=== PATIENT | female | born 1995 | race African-American/Black ===

== ENCOUNTER 2016-09-03 19:38 | Emergency (ER) | payer MEDICAID ==
[~2016-09-03] VITALS: Ht 162.6 cm; Wt 65.0 kg
[~2016-09-03 19:38] MED LIST: NAPR550T3 PO
[2016-09-03 19:39] VITALS: BP 111/76; PULSE 87; RESP 16; TEMP 98.2; O2SAT 99
== END 2016-09-04 02:48 | disposition left against medical advice (07) ==
LOC: NED 23:59
DX: R11.2 Nausea with vomiting, unspecified (principal); R19.7 Diarrhea, unspecified; Z53.21 Procedure and treatment not carried out due to patient leaving prior to being seen by health care provider
CPT/HCPCS: 99281

== ENCOUNTER 2017-04-28 16:39 | Emergency (ER) | payer SELFPAY ==
[~2017-04-28] VITALS: Ht 157.5 cm; Wt 61.5 kg
[~2017-04-28 16:39] MED LIST changes: +NAPR-803 PO; -NAPR550T3 PO
[2017-04-28 16:51] VITALS: BP 141/70; PULSE 123; RESP 20; TEMP 99.8; O2SAT 100
[2017-04-28] MEDS ORDERED: SODIUM CHLOR 0.9% 1000 ML INJ 1,000 ML IV ONE (17:21)
--- NOTE | 2017-04-28 17:27 | PD ---
HPI . Fever Chief Complaint: GI Complaint Time Seen by Provider: 17:16 Travel History International Travel<30 days: No Contact w/Intl Traveler<30days: No Traveled to known affect area: No History of Present Illness HPI This patient presents with a chief complaint of a fever for the last couple of days. It is associated with occasional nausea and vomiting. She reports 3 episodes of emesis total. She also reports nasal congestion. She has been taking NyQuil with temporary relief of symptoms. She states that she took a dose at 2 AM and then another dose at 3 PM today. She states her temperature as been running about 102. PFSH Past Medical History Hx Anticoagulant Therapy: No Cardiovascular Problems: No Chemotherapy: No Cerebrovascular Accident: No Developmental Delay: No Diabetes: No Diminished Hearing: No Respiratory: No Immunizations Current: Yes ?: Not Past Surgical History Hysterectomy: No Social History Alcohol Use: No Tobacco Use: No Substance Use: No Allergies-Medications (Allergen,Severity, Reaction): Coded Allergies: No Known Allergies (Verified Allergy, Unknown, 04/28/17) Reported Meds & Prescriptions Reported Meds & Active Scripts Active No Active Prescriptions or Reported Medications Review of Systems Except as stated in HPI: all other systems reviewed are Neg General / Constitutional: Positive: Fever, Chills HENT: Positive: Congestion Cardiovascular: No: Chest Pain or Discomfort Respiratory: No: Cough Gastrointestinal: Positive: Nausea, Vomiting, No: Diarrhea, Abdominal Pain Genitourinary: No: Urgency, Frequency, Dysuria Physical Exam Narrative GENERAL: This is a healthy-appearing 21-year-old in no distress. SKIN: warm/dry. Good turgor. HEAD: Normocephalic. Atraumatic. EYES: Pupils equal and round. No scleral icterus. No injection or drainage. ENT: No nasal bleeding or discharge. Mucous membranes pink and moist. No tenderness to percussion of her sinuses. Oropharynx has no erythema. NECK: Trachea midline. Full range of motion without pain.. No cervical lymphadenopathy. CARDIOVASCULAR: Tachycardic with a regular rhythm. RESPIRATORY: No accessory muscle use. Clear to auscultation. Breath sounds equal bilaterally. GASTROINTESTINAL: Abdomen soft. Nontender. Bowel sounds present. Nondistended. MUSCULOSKELETAL: No obvious deformities. NEUROLOGICAL: Awake and alert. No obvious cranial nerve deficits. Motor grossly within normal limits. Normal speech. PSYCHIATRIC: Appropriate mood and affect; insight and judgment normal. Data Data Last Documented VS Vital Signs Date Time Temp Pulse Resp B/P (MAP) Pulse Ox O2 Delivery O2 Flow Rate FiO2 04/28/17 18:16 17 04/28/17 18:14 98 Room Air 04/28/17 16:51 99.8 123 Orders Orders Iv Access Insert/Monitor (04/28/17 17:21) Ecg Monitoring (04/28/17 17:21) Oximetry (04/28/17 17:21) Ondansetron Inj (Zofran Inj) (04/28/17 17:30) Sodium Chlor 0.9% 1000 Ml Inj (Ns 1000 M (04/28/17 17:21) Sodium Chloride 0.9% Flush (Ns Flush) (04/28/17 17:30) Influenzae A/B Antigen (04/28/17 17:21) Ibuprofen (Motrin) (04/28/17 17:30) MDM Medical Decision Making Medical Screen Exam Complete: Yes Emergency Medical Condition: Yes Differential Diagnosis Differential diagnosis of fever includes but is not limited to viral illness, strep throat, otitis media, pneumonia, sepsis, UTI Narrative Course This patient presents with a 2 day history of fever associated with nasal congestion and occasional nausea and vomiting. I will treat her here with a liter of fluid, IV Zofran and oral ibuprofen. Flu test is pending. Flu screen is negative. This patient continues to look well. I will discharge her following her fluid bolus. Diagnosis Primary Impression: Viral syndrome Patient Instructions: General Instructions, Viral Syndrome (DC) Med/Other Pt SpecificInfo: Prescription(s) given Scripts Ondansetron (Zofran) 4 Mg Tab 4 MG PO Q6HR Y for NAUSEA OR VOMITING, #10 TAB 0 Refills Prov: Irene Lopez MD 04/28/17 Disposition: 01 DISCHARGE HOME Condition: Stable Irene Lopez MD Apr 28, 2017 17:27
[2017-04-28] MEDS ORDERED: SODIUM CHLORIDE 0.9% FLUSH 10 ML FLUSH IVF PRN (17:30)
[2017-04-28] MEDS ORDERED: ONDANSETRON HCL 4 MG/2 ML VIAL IV PUSH ONE (17:30)
[2017-04-28] MEDS ORDERED: IBUPROFEN 800 MG TAB PO ONE (17:30)
[2017-04-28 18:14] VITALS: RESP 17; O2SAT 98
[2017-04-28] MEDS ORDERED: ZOFR4TAB PO (18:43)
== END 2017-04-28 19:42 | disposition home or self-care (01) ==
LOC: NEPD 16:39
DX: B34.9 Viral infection, unspecified (principal); R11.2 Nausea with vomiting, unspecified; R09.81 Nasal congestion
CPT/HCPCS: 87804; 96361; 96374; 99284; J2405; J7030